=== PATIENT | male | born 1950 | race Caucasian/White ===

== ENCOUNTER → 2019-12-11 11:44 | Outpatient (BNVA) | payer MEDICARE, OTHER, SELFPAY | PROVIDERS: Family Provider Family Medicine; PCP Family Medicine; Visit Provider Family Medicine | DX: R10.84 Generalized abdominal pain (principal); M54.9 Dorsalgia, unspecified | CPT/HCPCS: 80053; 85025 ==

== ENCOUNTER 2019-12-18 10:48 | Outpatient (CLI) | payer MEDICARE, OTHER, SELFPAY ==
--- NOTE | 2019-12-18 11:00 | XR_ITS ---
WS: [id number] Thoracic spine, 3 views, 12/18/2019 Clinical Data: pain Comparison: None. Findings: No compression fractures are seen. The disc heights are normal. There is osteoporosis of the thoracic vertebral bodies. Degenerative change of the anterior aspect of the T10-T12 vertebral bodies is present. There is volume loss of the left lung with a left lower lat eral pleural thickening and irregularity of the left diaphragm probably from surgery. Midline sterno yi sutures are present. The patient's had an anterior cervical disc fusion from C5 through C6. XR/XR thoracic spine 2V [id number] Impression: 1. Osteoporosis and osteoarthritis. 2. Chronic changes of the left chest.
--- NOTE | 2019-12-18 11:00 | US_ITS ---
WS: [id number] Abdomen ultrasound, 12/18/2019 Clinical Data: pain Comparison: None. Findings: The pancreas shows no cyst, pseudocyst or evidence of pancreatitis. The liver shows no cysts, masses or dilated intrahepatic ducts. The liver shows fatty infiltration. The gallbladder has no stones or sludge. The wall measures 0.1 cm with no pericholecystic fluid. The common bile duct is 0.7 cm and no intraductal abnormalities are noted. The right kidney is 11.2 cm. There are small right renal cyst The left kidney is 10.9 cm. There are small left renal cysts. The abdominal aorta is not dilated and the inferior vena cava has normal flow. No vascular abnormalities are seen. The spleen measures 7.9 cm and there are no intrasplenic masses or capsular abnormalities. US/US abdomen complete* [id number] Impression: 1. Enlarged fatty liver. 2. Incidental small bilateral renal cysts. 3. Enlarged common bile duct with no intraductal abnormalities.
== END 2019-12-18 10:49 | disposition home or self-care (01) ==
LOC: RAD 10:53
PROVIDERS: PCP Family Medicine; Visit Provider Family Medicine
DX: R07.9 Chest pain, unspecified (principal); M54.6 Pain in thoracic spine; M81.0 Age-related osteoporosis without current pathological fracture; M47.814 Spondylosis without myelopathy or radiculopathy, thoracic region; K76.0 Fatty (change of) liver, not elsewhere classified
CPT/HCPCS: 72070; 76700

== ENCOUNTER → 2020-05-08 13:47 | Outpatient (BNVA) | payer MEDICARE, OTHER, SELFPAY | PROVIDERS: PCP Family Medicine; Visit Provider Nurse Practitioner Family | DX: I10 Essential (primary) hypertension (principal); M54.5 Low back pain; G89.29 Other chronic pain; Z68.29 Body mass index [BMI] 29.0-29.9, adult | CPT/HCPCS: 80048; 81000 ==

== ENCOUNTER → 2021-01-22 10:16 | Outpatient (BNVA) | payer MEDICARE, OTHER, SELFPAY | PROVIDERS: PCP Family Medicine; Visit Provider Family Medicine | DX: R35.1 Nocturia (principal); M54.9 Dorsalgia, unspecified | CPT/HCPCS: 81000 ==

== ENCOUNTER → 2021-12-24 10:07 | Outpatient (BNVA) | payer MEDICARE, SELFPAY | PROVIDERS: PCP Family Medicine; Visit Provider Family Medicine | DX: K76.0 Fatty (change of) liver, not elsewhere classified (principal); M54.9 Dorsalgia, unspecified; N52.9 Male erectile dysfunction, unspecified | CPT/HCPCS: 80053; 80061; 85025 ==

== ENCOUNTER → 2022-07-16 11:35 | Outpatient (BNVA) | payer MEDICARE, SELFPAY | PROVIDERS: PCP Family Medicine; Visit Provider Family Medicine | DX: M87.9 Osteonecrosis, unspecified (principal); M25.559 Pain in unspecified hip | CPT/HCPCS: 73502 ==

== ENCOUNTER → 2022-07-20 10:12 | Outpatient (BNVA) | payer MEDICARE, SELFPAY | PROVIDERS: PCP Family Medicine; Visit Provider Nurse Practitioner Family | DX: R05.8 Other specified cough (principal); R50.9 Fever, unspecified; R79.81 Abnormal blood-gas level | CPT/HCPCS: 71046; 80053; 85025; 87400; 87426 ==

== ENCOUNTER 2022-09-22 06:00 | Outpatient (RCR) | payer MEDICARE, SELFPAY | END 2022-09-29 23:59 | disposition home or self-care (01) | LOC: GPT 06:00 | PROVIDERS: PCP Family Medicine; Visit Provider Family Medicine | DX: M54.9 Dorsalgia, unspecified (principal) | CPT/HCPCS: 97110; 97112; 97140; 97162 ==

== ENCOUNTER 2022-09-30 06:00 | Outpatient (RCR) | payer MEDICARE, SELFPAY | END 2022-10-30 23:59 | disposition home or self-care (01) | LOC: GPT 06:00 | PROVIDERS: PCP Family Medicine; Visit Provider Family Medicine | DX: M54.9 Dorsalgia, unspecified (principal) | CPT/HCPCS: 97110; 97112; 97140; 97164; 97530 ==

== ENCOUNTER 2022-10-31 06:00 | Outpatient (RCR) | payer MEDICARE, SELFPAY | END 2022-11-29 23:59 | disposition home or self-care (01) | LOC: GPT 06:00 | PROVIDERS: PCP Family Medicine; Visit Provider Family Medicine | DX: M54.9 Dorsalgia, unspecified (principal) | CPT/HCPCS: 97110; 97140; 97530 ==

== ENCOUNTER 2022-11-30 06:00 | Outpatient (RCR) | payer MEDICARE, SELFPAY | END 2022-12-30 23:59 | disposition home or self-care (01) | LOC: GPT 06:00 | PROVIDERS: PCP Family Medicine; Visit Provider Family Medicine | DX: M54.9 Dorsalgia, unspecified (principal) | CPT/HCPCS: 97110; 97140; 97530 ==

== ENCOUNTER → 2022-12-25 15:20 | Outpatient (BNVA) | payer MEDICARE, SELFPAY | PROVIDERS: PCP Family Medicine; Visit Provider Nurse Practitioner Family | DX: R05.9 Cough, unspecified (principal); R50.9 Fever, unspecified | CPT/HCPCS: 87400; 87426 ==

== ENCOUNTER → 2023-03-02 16:16 | Outpatient (BNVA) | payer MEDICARE, SELFPAY | PROVIDERS: PCP Family Medicine; Visit Provider Nurse Practitioner Family | DX: R10.11 Right upper quadrant pain (principal); I10 Essential (primary) hypertension | CPT/HCPCS: 80053; 80061; 84443; 85025 ==

== ENCOUNTER → 2023-08-04 11:20 | Outpatient (BNVA) | payer MEDICARE, SELFPAY | PROVIDERS: PCP Family Medicine; Visit Provider Family Medicine | DX: R50.9 Fever, unspecified (principal); R30.0 Dysuria; J40 Bronchitis, not specified as acute or chronic | CPT/HCPCS: 81000; 87400; 87426 ==

== ENCOUNTER 2024-02-04 08:41 | Outpatient (CLI) | payer MEDICARE, SELFPAY ==
--- NOTE | 2024-02-04 09:00 | CT_ITS ---
WS: [id number] LDCT LUNG CANCER SCREENING TECHNIQUE: Noncontrast CT of the chest with coronal and sagittal reformatted images. CLINICAL INFORMATION: F17.210 - Nicotine dependence, cigarettes, uncomplicated COMPARISON: None. DLP: 75.10 mGy.cm DIvol: Mean CTDIvol: 1.60 (mGy) All CT scans at [facility] use at least one of these dose optimization techniques: automat ed exposure control; mA and/or kV adjustment per patient size (includes targeted exams where dose is matched to clinical indication); or iterative reconstruction. FINDINGS: Spiculated lesion in the RIGHT upper lobe near the lung apex suspicious for neoplasm measur ing 1.5 x 1.9 cm. Recommend further evaluation with PET/CT. Surrounding satellite nodularity. Additio nal suspicious spiculated lesion LEFT lung apex measuring 8 mm. Fibrosis in the lung apices. Pleural parenchymal scarring in both lungs. Pleural plaques in the lingula and LEFT lower lobe. Nodular pleural thickening along the LEFT fissur e with a few calcified lesions. Subpleural nodularity LEFT upper lobe. Additional probable partially calcified lesion in the RIGHT upper lobe measuring 6 mm. Volume loss LEFT lower lobe with pleural par enchymal scarring. Aortic calcification. Normal caliber thoracic aorta. Prior sternotomy with CABG. Normal caliber desce nding thoracic aorta. No mediastinal or hilar lymphadenopathy. No axillary lymphadenopathy. Coronary calcification. Normal GE junction. Small LEFT adrenal adenoma. Normal RIGHT adrenal gland. Indetermin ate LEFT renal lesions with an increased attenuation cortical lesion measuring 1.5 cm. Additional ind eterminate low-attenuation LEFT renal lesion measuring 2.1 cm. Recommend further evaluation with ultr asound. Small splenules. Moderate thoracic kyphosis. CT/CT lung screening [id number] IMPRESSION: 1. RIGHT upper lobe spiculated lesion measuring 1.5 x 1.9 cm highly suspicious for neoplasm. Recommend further evaluation with PET/CT. 2. Additiona suspicious spiculated lesion 8 mm LEFT lung apex. 3. Indeterminate LEFT renal lesions. Recommend renal ultrasound. LUNG-RADS: 4BS-Suspicious with Significant Findings FOLLOW UP: PET/CT recommended
== END 2024-02-04 08:42 | disposition home or self-care (01) ==
LOC: RAD 08:42
PROVIDERS: PCP Family Medicine; Visit Provider Family Medicine
DX: Z12.2 Encounter for screening for malignant neoplasm of respiratory organs (principal); F17.210 Nicotine dependence, cigarettes, uncomplicated; R91.8 Other nonspecific abnormal finding of lung field; J84.10 Pulmonary fibrosis, unspecified; J92.9 Pleural plaque without asbestos; N28.9 Disorder of kidney and ureter, unspecified; M40.204 Unspecified kyphosis, thoracic region; I25.10 Atherosclerotic heart disease of native coronary artery without angina pectoris
CPT/HCPCS: 71271; 80053; 80061; 81000; 82306; 83735; 84443; 85025; 86140; 86803; 87806; G0103

== ENCOUNTER → 2024-02-15 13:33 | Outpatient (CLI) | payer MEDICARE, SELFPAY ==
--- NOTE | 2024-02-15 14:00 | PETR_ITS ---
PROCEDURE INFORMATION: Exam: PET/CT Skull Base to Mid-thigh Exam date and time: 02/15/2024 2:08 PM Age: 73 years old Clinical indication: Abnormal findings; Right upper lobe spiculated lesion measuring 1.5 x 1.9 cm; Prior surgery; Surgery date: 6+ months; Surgery type: Heart; Additional info: R91.8 - other nonspecific abnormal finding of lung field LABS AND CLINICAL REPORTS: Glucose: 100 mg/dl Treatment strategy for malignancy (PET staging): Initial Staging (PI) TECHNIQUE: Imaging protocol: Following at least four-hour fasting and following the injection of radiopharmaceutical, low dose CT images were obtained. Then, PET images were obtained. Attenuation corrected images were constructed using the CT scan. Fused images of PET and CT were reviewed. The standardized uptake values (SUV) reported below are maximum values within a region of interest, expressed in gm/ml. Exam includes orbital meatal line to mid-thigh. Radiopharmaceutical: 11.85 mCi F-18 FDG (Fluorodeoxyglucose), IV. Time of imaging post radiopharmaceutical administration: 1 hour Injection site: Left hand COMPARISON: CT lung screening [id number] 02/04/2024 9:08 AM FINDINGS: Brain: Visualized brain has normal physiologic uptake. Salivary glands: Asymmetric uptake in the left submandibular gland is noted and is likely physiologic or inflammatory, without a corresponding lesion on the CT images, SUV max 3.8. Pharynx: No abnormal uptake. Larynx: No abnormal uptake. Lungs, pleura and trachea: There are multifocal regions of radiotracer avid hyperdense pleural based nodularity throughout the left hemithorax including the major fissure. For example, at the superomedial aspect of the fissure on series 3, image 69, uptake demonstrates an SUV max 10.2 within a nodule measuring 1.8 x 1.0 cm. A solid anterior left upper lobe spiculated 7-8 mm nodule on image 60 is noted, SUV max 1.6. A spiculated solid right upper lobe nodule measuring 2.0 x 1.4 cm on image 66 is radiotracer avid, SUV max 12.3. A solid right upper lobe 4 mm nodule on image 86 is not radiotracer avid. Heart: Normal physiologic uptake. Mediastinal space: No abnormal uptake. Liver: No abnormal uptake. Gallbladder and biliary ducts: No abnormal uptake. Pancreas: No abnormal uptake. Spleen: No abnormal uptake. Adrenal glands: No abnormal uptake. Kidneys and ureters: Normal physiologic uptake. Numerous rounded low-density lesions in both kidneys are noted and there is an exophytic lesion in the mid lateral left kidney which is isodense to renal parenchyma measuring 1.3 cm on series 3, image 145. An additional rounded structure which is isodense to renal parenchyma is not radiotracer avid arising exophytically from the left renal inferior pole measuring 2.8 cm on image 168. Stomach and bowel: Elevated uptake in a 2.2 cm in length segment decompressed and possibly thick-walled sigmoid colon is noted in the left pelvis on series 3, image 217, SUV max 3.9. Vasculature: No abnormal uptake. There are diffuse atherosclerotic calcifications including within the coronary arteries. Regions of aneurysmal dilatation of the infrarenal abdominal aorta are noted measuring up to 3.1 x 3.3 cm. Lymph nodes: No abnormal uptake. Borderline prominence of mediastinal lymph nodes is noted. One of these lymph nodes in the subcarinal space demonstrates low-level uptake, SUV max 2.7 in a lymph node measuring 1.0 x 0.8 cm. Skeleton: No abnormal uptake in the visualized axial and appendicular skeleton. Degenerative changes in the spine are noted. Anterior metallic fusion from C5 through C7 is noted. Soft tissues: No abnormal uptake in the visualized head, neck, chest, abdomen, pelvis, and extremities. METRICS: Mediastinal blood pool: SUV max 2.4, SUV mean 2.1 PET/PET skull to thigh INIT [id number] IMPRESSION: 1. A spiculated right upper lobe nodule is radiotracer avid (SUV max 12.3) compatible with malignancy. 2. Additional smaller bilateral parenchymal pulmonary nodules are not radiotracer avid, however assessment of small nodules can be limited by PET-CT. 3. Multifocal regions of radiotracer avid pleural based nodularity throughout the left hemithorax are present with elevated uptake concerning for malignancy. 4. Borderline prominence of mediastinal lymph nodes, one of which demonstrates low-level uptake in the subcarinal space which may reflect inflammatory, infectious or malignant involvement. 5. Mild uptake in a short segment of decompressed sigmoid colon in the left pelvis is noted which may be physiologic in nature. The possibility of mild wall thickening in this area cannot be excluded and uptake related to inflammatory changes is an additional consideration. A malignant etiology is less likely but cannot be entirely excluded. 6. Numerous bilateral rounded non radiotracer avid renal lesions are noted, the majority of which likely represent benign cysts. Slightly hyperdense lesions arising from the left kidney are also noted which may represent hemorrhagic cysts. Characterization of renal lesions is limited by PET-CT. MRI with and without contrast with renal lesion protocol would be useful for further assessment. 7. Additional nonurgent findings as detailed above.
== END | disposition home or self-care (01) ==
LOC: RAD 13:32
PROVIDERS: PCP Family Medicine; Visit Provider Family Medicine
DX: R91.8 Other nonspecific abnormal finding of lung field (principal); N28.89 Other specified disorders of kidney and ureter; R93.3 Abnormal findings on diagnostic imaging of other parts of digestive tract; I25.84 Coronary atherosclerosis due to calcified coronary lesion; M43.22 Fusion of spine, cervical region
CPT/HCPCS: 78815; A9552

== ENCOUNTER 2024-02-23 09:33 | Outpatient (CLI) | payer MEDICARE, SELFPAY ==
--- NOTE | 2024-02-23 09:30 | US_ITS ---
WS: [id number] RENAL ULTRASOUND HISTORY: N28.9 - Disorder of kidney and ureter, unspecified COMPARISON: PET/CT 02/15/2024. TECHNIQUE: 2-D and color Doppler imaging of the kidney submitted. Right kidney: 10.4 cm x 6.9 cm x 6.2 cm. Cortex: 1.6 cm Normal size kidney. Multiple cortical cysts are identified. No solid mass. The largest cyst measures 4.2 x 3.0 x 3.7 cm. No hydronephrosis. Left kidney: 10.6 cm x 4.4 cm x 5.0 cm. Cortex: 1.5 cm Normal size kidney with no hydronephrosis. Multiple cortical cysts are identified. The largest from t he lower pole measures 2.8 x 2.4 x 2.6 cm. No solid mass identified. No hyperdense cyst. Aorta: Atherosclerosis. Urinary Bladder: Mildly distended bladder. Prostate is enlarged measuring 3.8 x 3.7 cm. US/US renal BI* [id number] IMPRESSION: 1. Normal size kidneys with no hydronephrosis. 2. Multiple bilateral renal cysts. No solid mass.
== END 2024-02-23 09:34 | disposition home or self-care (01) ==
LOC: RAD 09:34
PROVIDERS: PCP Family Medicine; Visit Provider Family Medicine
DX: N28.9 Disorder of kidney and ureter, unspecified (principal); Q61.02 Congenital multiple renal cysts; N32.89 Other specified disorders of bladder; N40.0 Benign prostatic hyperplasia without lower urinary tract symptoms
CPT/HCPCS: 76770

== ENCOUNTER → 2024-05-04 13:09 | Outpatient (BNVA) | payer MEDICARE, SELFPAY | PROVIDERS: PCP Family Medicine; Visit Provider Family Medicine | DX: K76.0 Fatty (change of) liver, not elsewhere classified (principal) | CPT/HCPCS: 80053 ==

== ENCOUNTER → 2024-06-20 08:30 | Outpatient (BNVA) | payer MEDICARE, SELFPAY | PROVIDERS: PCP Family Medicine; Visit Provider Family Medicine | DX: K76.0 Fatty (change of) liver, not elsewhere classified (principal) | CPT/HCPCS: 80053 ==

== ENCOUNTER → 2024-07-03 08:25 | Outpatient (BNVA) | payer MEDICARE, SELFPAY | PROVIDERS: PCP Family Medicine; Visit Provider Family Medicine | DX: R74.8 Abnormal levels of other serum enzymes (principal) | CPT/HCPCS: 80053 ==

== ENCOUNTER → 2024-07-24 15:48 | Outpatient (BNVA) | payer MEDICARE, SELFPAY | PROVIDERS: PCP Family Medicine; Visit Provider Family Medicine | DX: R10.9 Unspecified abdominal pain (principal); I87.8 Other specified disorders of veins; R93.5 Abnormal findings on diagnostic imaging of other abdominal regions, including retroperitoneum; Z98.890 Other specified postprocedural states; M47.9 Spondylosis, unspecified | CPT/HCPCS: 74018 ==

== ENCOUNTER → 2024-08-16 09:42 | Outpatient (BNVA) | payer MEDICARE, SELFPAY | PROVIDERS: PCP Family Medicine; Visit Provider Family Medicine | DX: R79.89 Other specified abnormal findings of blood chemistry (principal) | CPT/HCPCS: 80053 ==

== ENCOUNTER → 2025-01-16 09:39 | Outpatient (BNVA) | payer MEDICARE, SELFPAY | PROVIDERS: PCP Family Medicine; Visit Provider Family Medicine | DX: I10 Essential (primary) hypertension (principal); R79.89 Other specified abnormal findings of blood chemistry; C34.90 Malignant neoplasm of unspecified part of unspecified bronchus or lung; J43.9 Emphysema, unspecified; Z12.5 Encounter for screening for malignant neoplasm of prostate | CPT/HCPCS: 80053; 80061; 82607; 83036; 84443; 85025; G0103 ==